=== PATIENT | male | born 1960 | race Caucasian/White ===

== ENCOUNTER 2019-06-28 08:41 | Day surgery (SDC) | payer BC, OTHER ==
[~2019-06-28] VITALS: Ht 170.2 cm; Wt 84.8 kg
[~2019-06-28 08:41] MED LIST: ALLO10TA PO; ALLO300T OR; ASPI325T OR; BAYE325T12 PO; CYCL10TA PO; LISI10TA4 PO; LISI5TAB OR; METF-839 PO; MOBI4TAB PO; MULTCAP PO; MULTIVIT PO; NS 1,000 ML IV ONE; ORPHENADRINE PO; SKEL800T5 OR; SOMA350T PO; TRAM-533 PO; TRAM37.5 PO; VITA500C19 PO; VITA500T OR; [UNRECOGNIZED DRUG - OTHER] PO
[2019-06-28] MEDS ORDERED: PROPOFOL 200 MG/20 ML VIAL As Ordered ONE ×3 (09:45→10:32)
[2019-06-28] MEDS ORDERED: LIDOCAINE 2% INJ 100 MG/5 ML SDV (FOR ANES.) As Ordered ONE (09:45)
--- NOTE | 2019-06-28 10:23 | ROOR ---
Patient Name: Lam Gamble Procedure Date: 06/28/2019 9:28 AM Date of : 1960 Age: 59 Room: [facility] Gender: Male Note Status: Finalized Procedure: Colonoscopy Indications: Screening for colorectal malignant neoplasm Providers: Neo Hagen Jr, MD Referring MD: CRYSTAL GORSS NP Requesting Provider: Medicines: Propofol per Anesthesia Complications: No immediate complications. Procedure: Pre-Anesthesia Assessment: - Prior to the procedure, a History and Physical was performed, and patient medications and allergies were reviewed. The patient is competent. The risks and benefits of the procedure and the sedation options and risks were discussed with the patient. All questions were answered and informed consent was obtained. Patient identification and proposed procedure were verified by the physician and the nurse in the pre-procedure area and in the procedure room. Mental Status Examination: alert and oriented. Airway Examination: normal oropharyngeal airway and neck mobility. Respiratory Examination: clear to auscultation. CV Examination: normal. ASA Grade Assessment: II - A patient with mild systemic disease. After reviewing the risks and benefits, the patient was deemed in satisfactory condition to undergo the procedure. The anesthesia plan was to use moderate sedation / analgesia (conscious sedation). Immediately prior to administration of medications, the patient was re-assessed for adequacy to receive sedatives. The heart rate, respiratory rate, oxygen saturations, blood pressure, adequacy of pulmonary ventilation, and response to care were monitored throughout the procedure. The physical status of the patient was re-assessed after the procedure. The Colonoscope was introduced through the anus and advanced to the cecum, identified by appendiceal orifice and ileocecal valve. The colonoscopy was performed without difficulty. The patient tolerated the procedure well. The quality of the bowel preparation was adequate. Findings: The rectum, recto-sigmoid colon, sigmoid colon, descending colon, transverse colon, cecum and ileocecal valve appeared normal. Two hyperplastic polyps were found in the ascending colon. The polyps were small in size. These polyps were removed with a cold snare. Resection was complete, but the polyp tissue was only partially retrieved. The sigmoid colon, descending colon, transverse colon and ascending colon were significantly redundant. Impression: - The rectum, recto-sigmoid colon, sigmoid colon, descending colon, transverse colon, cecum and ileocecal valve are normal. - Two small polyps in the ascending colon, removed with a cold snare. Complete resection. Partial retrieval. Recommendation: - Discharge patient to home (ambulatory). - Repeat colonoscopy in 5-10 years for surveillance based on pathology results. Neo Hagen MD Neo Hagen Jr, MD 06/28/2019 10:23:36 AM Electronically signed by Neo Hagen Jr, MD Number of Addenda: 0 Note Initiated On: 06/28/2019 9:28 AM Estimated Blood Loss: Estimated blood loss: none.
[2019-06-28 10:57] VITALS: BP 128/79
== END 2019-06-28 11:30 | disposition home or self-care (01) ==
LOC: M OPP 08:41
PROVIDERS: ATTEND Surgery
DX: Z12.11 Encounter for screening for malignant neoplasm of colon (principal); Q43.8 Other specified congenital malformations of intestine; D12.2 Benign neoplasm of ascending colon; E11.9 Type 2 diabetes mellitus without complications; G47.33 Obstructive sleep apnea (adult) (pediatric); I13.0 Hypertensive heart and chronic kidney disease with heart failure and stage 1 through stage 4 chronic kidney disease, or unspecified chronic kidney disease; N18.9 Chronic kidney disease, unspecified; Z79.84 Long term (current) use of oral hypoglycemic drugs; Z79.899 Other long term (current) drug therapy; Z91.011 Allergy to milk products; Z91.041 Radiographic dye allergy status

== ENCOUNTER → 2022-03-09 | Outpatient (CLI) | payer MEDICARE, OTHER ==
[~2022-03-09] MED LIST changes: +CYCL-707 PO; -CYCL10TA PO; +LISI10TA22 PO; -LISI10TA4 PO; -NS 1,000 ML IV ONE
== END ==
LOC: M WUC 10:00
PROVIDERS: ATTEND Physician Assistant
DX: J06.9 Acute upper respiratory infection, unspecified (principal); J20.9 Acute bronchitis, unspecified; Z20.828 Contact with and (suspected) exposure to other viral communicable diseases

== ENCOUNTER → 2022-09-09 | Outpatient (REF) | payer MEDICARE, BC, OTHER | LOC: M LAB REF 16:20 | PROVIDERS: ATTEND Internal Medicine | DX: M10.9 Gout, unspecified (principal) ==

== ENCOUNTER → 2022-12-07 | Outpatient (REF) | payer MEDICARE, OTHER ==
[2022-12-07 13:07] LABS: APPEARANCE, URINE MANUAL CLEAR (CLEAR); COLOR, URINE MANUAL YELLOW (YELLOW)
[2022-12-07 13:09] LABS: GLUCOSE, URINE (UA) MANUAL NEGATIVE (NEGATIVE); KETONE, URINE MANUAL NEGATIVE (NEGATIVE); PROTEIN, URINE MANUAL 1+ mg/dL (NEGATIVE)
[2022-12-07 13:10] LABS: BILIRUBIN, URINE MANUAL NEGATIVE (NEGATIVE); BLOOD URINE MANUAL NEGATIVE (NEGATIVE); LEUKOCYTE ESTERASE, URINE MAN NEGATIVE (NEGATIVE); NITRITE, URINE MANUAL NEGATIVE (NEGATIVE); UROBILINOGEN, URINE MANUAL NORMAL (NORMAL)
[2022-12-07 13:46] LABS: BACTERIA, URINE SMALL AMOUNT; HYALINE CAST, URINE NONE SEEN /lpf (0-1); RBC, URINE 0-1 /hpf (0-3); SQUAMOUS EPITHELIAL CELL URINE SMALL AMOUNT /hpf (SMALL AMT); WBC, URINE 0-1 /hpf (0-3)
== END ==
LOC: M LAB REF 12:17
PROVIDERS: ATTEND Internal Medicine
DX: M54.50 Low back pain, unspecified (principal)

== ENCOUNTER → 2023-09-30 | Outpatient (REF) | payer MEDICARE, OTHER, BC | LOC: M LAB REF 17:34 | PROVIDERS: ATTEND Internal Medicine | DX: M10.9 Gout, unspecified (principal) ==

== ENCOUNTER → 2023-10-11 | Outpatient (CLI) | payer MEDICARE, BC, OTHER | LOC: M RAD 09:47 | PROVIDERS: ATTEND Internal Medicine | DX: I65.23 Occlusion and stenosis of bilateral carotid arteries (principal) ==

== ENCOUNTER → 2023-11-09 | Outpatient (CLI) | payer MEDICARE, BC, OTHER ==
[~2023-11-09] MED LIST changes: +ISOVUE-370 76% 100ML VIAL ONE; +PROHANCE 279.3MG/ML 15ML VIAL ONE
== END ==
LOC: M PLAIMG 09:36
PROVIDERS: ATTEND Internal Medicine
DX: I65.23 Occlusion and stenosis of bilateral carotid arteries (principal)
CPT/HCPCS: 70549; A9576; Q9967

== ENCOUNTER → 2024-01-06 | Outpatient (REF) | payer MEDICARE, OTHER ==
[~2024-01-06] MED LIST changes: -ISOVUE-370 76% 100ML VIAL ONE; -PROHANCE 279.3MG/ML 15ML VIAL ONE
[2024-01-09 15:16] LABS: HEPATITIS C VIRUS ABY INDEX < 0.02 INDEX (<0.8)
[2024-01-09 15:17] LABS: HEPATITIS B CORE ANTIBODY IGM NEGATIVE (NEGATIVE)
== END ==
LOC: M LAB REF 12:49
PROVIDERS: ATTEND Internal Medicine
DX: R74.01 Elevation of levels of liver transaminase levels (principal)

== ENCOUNTER → 2024-08-01 | Outpatient (REF) | payer MEDICARE, OTHER | LOC: M LAB REF 16:51 | PROVIDERS: ATTEND Internal Medicine | DX: I12.9 Hypertensive chronic kidney disease with stage 1 through stage 4 chronic kidney disease, or unspecified chronic kidney disease (principal) ==

== ENCOUNTER → 2024-10-15 | Outpatient (REF) | payer MEDICARE, OTHER, BC ==
[~2024-10-15] MED LIST changes: -VITA500C19 PO; +VITA500C22 PO
== END ==
LOC: M LAB REF 16:37
PROVIDERS: ATTEND Internal Medicine
DX: M10.9 Gout, unspecified (principal)

== ENCOUNTER 2025-05-30 06:15 | Day surgery (SDC) | payer MEDICARE, BC ==
[~2025-05-30] VITALS: Ht 170.2 cm; Wt 87.2 kg
[~2025-05-30 06:15] MED LIST changes: +ALER25CA PO; +ALLO300T2 PO; -BAYE325T12 PO; +BAYE325T2 PO; +ECOT81TA5 PO; +FARX1TAB3 PO; +MAGN400C PO; +ROSU10TA61 PO; +THERTAB52 PO; +TRAM1CAP15 PO; +TRAM50TA2 PO
[2025-05-30] MEDS ORDERED: GLUCOSE 4 GM CHEW PO PRN (06:35)
[2025-05-30] MEDS ORDERED: LR 1,000 ML IV SCH (06:35)
[2025-05-30] MEDS ORDERED: DEXTROSE 50% 50 ML SYRINGE IV PRN (06:35)
[2025-05-30] MEDS ORDERED: GLUCAGON INJ 1 MG VIAL SC PRN (06:35)
[2025-05-30] MEDS ORDERED: INSULIN LISPRO (NovoLOG) PER UNIT SC PRN (06:35)
[2025-05-30] MEDS ORDERED: TADA10TA PO (06:52)
[2025-05-30] MEDS ORDERED: OXYMETAZOLINE 0.05% NASAL SPRAY As Ordered ONE (07:07)
[2025-05-30] MEDS ORDERED: MIDAZOLAM INJ 2 MG/2 ML VIAL As Ordered ONE (07:11)
[2025-05-30] MEDS ORDERED: LIDOCAINE 2% 100 MG/5 ML SDV (FOR ANES.) As Ordered ONE (07:13)
[2025-05-30] MEDS ORDERED: dexAMETHasone 4 MG/ML 1 ML VIAL As Ordered ONE (07:15)
[2025-05-30] MEDS ORDERED: ONDANSETRON 4MG 2ML VIAL As Ordered ONE (07:16)
[2025-05-30] MEDS ORDERED: SUCCINYLCHOLINE 100MG/5ML SYRINGE As Ordered ONE (07:19)
[2025-05-30] MEDS ORDERED: ACETAMINOPHEN 1000MG/100ML IV BAG As Ordered ONE (07:19)
[2025-05-30] MEDS ORDERED: dexmedeTOMIDine (4 MCG/ML) 200 MCG/50 ML BTL As Ordered ONE (08:06)
[2025-05-30] MEDS ORDERED: ONDANSETRON 4MG 2ML VIAL IV PRN (08:10)
[2025-05-30 09:13] VITALS: BP 129/77; TEMP 97.6; O2SAT 95
== END 2025-05-30 09:50 | disposition home or self-care (01) ==
LOC: M SDC 06:15
PROVIDERS: ATTEND Otolaryngology
DX: C01 Malignant neoplasm of base of tongue (principal); G47.33 Obstructive sleep apnea (adult) (pediatric); J30.9 Allergic rhinitis, unspecified; I12.9 Hypertensive chronic kidney disease with stage 1 through stage 4 chronic kidney disease, or unspecified chronic kidney disease; E11.22 Type 2 diabetes mellitus with diabetic chronic kidney disease; N18.30 Chronic kidney disease, stage 3 unspecified; E78.00 Pure hypercholesterolemia, unspecified; Z79.899 Other long term (current) drug therapy; Z79.84 Long term (current) use of oral hypoglycemic drugs; Z85.828 Personal history of other malignant neoplasm of skin; Z91.041 Radiographic dye allergy status; Z91.011 Allergy to milk products; Z87.891 Personal history of nicotine dependence
CPT/HCPCS: 31536; 88305; J0131; J0330; J1100; J2250; J2405; J3010

== ENCOUNTER → 2025-06-18 | Outpatient (CLI) | payer MEDICARE, BC ==
[~2025-06-18] MED LIST changes: +CLAR10CA3 PO; +FARX1TAB5; +TADA10TA PO
== END ==
LOC: M ONCR 09:14
PROVIDERS: ATTEND General Practice
DX: C01 Malignant neoplasm of base of tongue (principal); R59.0 Localized enlarged lymph nodes; N18.9 Chronic kidney disease, unspecified; Z79.82 Long term (current) use of aspirin; Z79.84 Long term (current) use of oral hypoglycemic drugs; Z79.899 Other long term (current) drug therapy; Z91.041 Radiographic dye allergy status; Z91.011 Allergy to milk products
CPT/HCPCS: 31575; G0463

== ENCOUNTER 2025-06-25 13:51 | Outpatient (RCR) | payer MEDICARE, BC ==
[2025-07-10] MEDS ORDERED: ONDA-84 PO (15:12)
== END 2025-06-27 23:59 | disposition home or self-care (01) ==
LOC: M ONCR 13:51
PROVIDERS: ATTEND General Practice
DX: Z51.0 Encounter for antineoplastic radiation therapy (principal); C01 Malignant neoplasm of base of tongue

== ENCOUNTER → 2025-06-27 | Outpatient (CLI) | payer MEDICARE, BC ==
[~2025-06-27] MED LIST changes: +SODIUM CHLORIDE 0.9% INJ 10 ML SYR IV PRN; +SODIUM CHLORIDE 0.9% INJ 10 ML SYR IV SCH
== END ==
LOC: M IRPRO 09:49
PROVIDERS: ATTEND Specialist
DX: C01 Malignant neoplasm of base of tongue (principal)
CPT/HCPCS: 36569; C1751

== ENCOUNTER → 2025-07-01 | Outpatient (CLI) | payer MEDICARE, BC ==
[~2025-07-01] MED LIST changes: -SODIUM CHLORIDE 0.9% INJ 10 ML SYR IV PRN; -SODIUM CHLORIDE 0.9% INJ 10 ML SYR IV SCH
== END ==
LOC: M PLARAD 13:30
PROVIDERS: ATTEND General Practice
DX: C02.9 Malignant neoplasm of tongue, unspecified (principal); R59.0 Localized enlarged lymph nodes; C79.89 Secondary malignant neoplasm of other specified sites
CPT/HCPCS: 78815; A9552

== ENCOUNTER 2025-07-26 08:26 | Outpatient (RCR) | payer MEDICARE, BC ==
[~2025-07-26 08:26] MED LIST changes: +ONDA-84 PO
[2025-07-26] MEDS ORDERED: LIDO15SO8 PO (09:08)
[2025-07-26] MEDS ORDERED: LOSA25TA13 PO (11:39)
== END 2025-07-28 ==
LOC: M ONCR 08:26
PROVIDERS: ATTEND General Practice
DX: Z51.0 Encounter for antineoplastic radiation therapy (principal); C01 Malignant neoplasm of base of tongue

== ENCOUNTER 2025-08-01 08:05 | Outpatient (RCR) | payer MEDICARE, BC ==
[~2025-08-01 08:05] MED LIST changes: +LIDO15SO8 PO; +LOSA25TA13 PO
[2025-08-12] MEDS ORDERED: MUCI1LIQ3 PO (09:17)
[2025-08-26] MEDS ORDERED: OXYC1SOL3 PO (09:38)
== END 2025-08-27 ==
LOC: M ONCR 08:05
PROVIDERS: ATTEND General Practice
DX: Z51.0 Encounter for antineoplastic radiation therapy (principal); C01 Malignant neoplasm of base of tongue; Z53.8 Procedure and treatment not carried out for other reasons

== ENCOUNTER → 2025-08-27 | Outpatient (RCR) | payer MEDICARE, BC ==
[~2025-08-27] MED LIST changes: +MUCI1LIQ3 PO; +OXYC1SOL3 PO
== END ==
LOC: M ONCR 07-30 08:25
PROVIDERS: ATTEND General Practice
DX: Z51.0 Encounter for antineoplastic radiation therapy (principal); C01 Malignant neoplasm of base of tongue

== ENCOUNTER 2025-08-29 08:30 | Outpatient (RCR) | payer MEDICARE, BC ==
[~2025-08-29 08:30] MED LIST changes: -ROSU10TA61 PO; +ROSU10TA90 PO
== END 2025-09-27 ==
LOC: M ONCR 08:30
PROVIDERS: ATTEND General Practice
DX: Z51.0 Encounter for antineoplastic radiation therapy (principal); C01 Malignant neoplasm of base of tongue

== ENCOUNTER → 2025-09-10 | Outpatient (CLI) | payer MEDICARE, BC ==
[~2025-09-10] MED LIST changes: +ROSU10TA61 PO; -ROSU10TA90 PO
== END ==
LOC: M ONCR 09:15
PROVIDERS: ATTEND General Practice
DX: C01 Malignant neoplasm of base of tongue (principal); L59.8 Other specified disorders of the skin and subcutaneous tissue related to radiation

== ENCOUNTER → 2025-09-24 | Outpatient (CLI) | payer MEDICARE, BC ==
[~2025-09-24] MED LIST changes: -ROSU10TA61 PO; +ROSU10TA90 PO
== END ==
LOC: M ONCR 08:04
PROVIDERS: ATTEND General Practice
DX: C01 Malignant neoplasm of base of tongue (principal); I89.0 Lymphedema, not elsewhere classified

== ENCOUNTER → 2025-11-25 | Outpatient (CLI) | payer MEDICARE, BC | LOC: M PLARAD 07:22 | PROVIDERS: ATTEND General Practice | DX: C01 Malignant neoplasm of base of tongue (principal) | CPT/HCPCS: 78815; A9552 ==